=== PATIENT | female | born 1990 | race Caucasian/White ===

== ENCOUNTER 2018-12-10 05:48 | Emergency (ER) | payer OTHER ==
[2018-12-10 06:05] VITALS: BP 123/87
[2018-12-10] MEDS ORDERED: IBUPROFEN 600 MG TABLET PO ONE (06:42)
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
== END 2018-12-10 07:21 | disposition home or self-care (01) ==
LOC: ER 05:48
DX: S16.1XXA Strain of muscle, fascia and tendon at neck level, initial encounter (principal); M54.2 Cervicalgia; M54.89 Other dorsalgia; M25.511 Pain in right shoulder; M25.512 Pain in left shoulder; V49.50XA Passenger injured in collision with unspecified motor vehicles in traffic accident, initial encounter
CPT/HCPCS: 99283

== ENCOUNTER 2018-12-13 20:03 | Emergency (ER) | payer OTHER ==
[2018-12-13 20:10] VITALS: BP 131/75
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
== END 2018-12-13 21:10 | disposition home or self-care (01) ==
LOC: ER 20:03
DX: S06.0X0A Concussion without loss of consciousness, initial encounter (principal); I95.1 Orthostatic hypotension; R51 Headache; R42 Dizziness and giddiness; V89.2XXA Person injured in unspecified motor-vehicle accident, traffic, initial encounter
CPT/HCPCS: 99283